=== PATIENT | female | born 1960 | race Caucasian/White ===

== ENCOUNTER 2018-01-03 16:26 | Emergency (ER) | payer MEDICARE, MEDICAID ==
[~2018-01-03] VITALS: Ht 170.2 cm; Wt 90.9 kg
[2018-01-03 16:51] LABS: BASOPHILS % (AUTO) 0.8 % (0.0-2.0); EOSINOPHILS % (AUTO) 2.1 % (1.0-6.0); HEMOGLOBIN 11.9 g/dL (12.0-16.0); LYMPHOCYTES % (AUTO) 14.2 % (22.0-44.0); MEAN CORPUSCULAR HEMOGLOBIN 34.5 pg (26.0-34.0); MEAN CORPUSCULAR HGB CONC 35.2 G/dL (31.0-37.0); MEAN CORPUSCULAR VOLUME 98 fL (80-100); MONOCYTES # (AUTO) 0.6 K/uL (0.1-1.0); MONOCYTES % (AUTO) 8.9 % (2.0-9.0); PLATELET COUNT (AUTO) 155 K/uL (150-450); RED BLOOD CELL COUNT(AUTO) 3.46 MIL/uL (4.00-5.20); RED CELL DISTRIBUTION WIDTH 13.1 % (11.5-14.5)
[2018-01-03 16:59] LABS: GLUCOSE,POINT OF CARE 205 MG/DL (70-110)
[2018-01-03 17:10] LABS: ANION GAP 14 mmol/L (8-16); CALCIUM, TOTAL 9.1 mg/dL (8.8-10.5); CARBON DIOXIDE 22 mmol/L (22-29); CHLORIDE 97 mmol/L (98-107); CREATININE 0.95 mg/dL (0.60-1.30); GLOMERULAR FILTR. RATE CALC > 60 mL/min (>60); GLUCOSE,RANDOM 200 mg/dL (70-110); POTASSIUM 3.1 mmol/L (3.5-5.1); SODIUM SERUM 133 mmol/L (136-145); UREA NITROGEN, BLOOD 21 mg/dL (7-18)
[2018-01-03 17:16] LABS: ALANINE AMINOTRANSFERASE 93 U/L (12-78); ALBUMIN 3.8 g/dL (3.4-5.0); ALKALINE PHOSPHATASE 81 U/L (46-116); ASPARTATE AMINOTRANSFERASE 188 U/L (15-37); BILIRUBIN,TOTAL 2.2 mg/dL (0.1-1.0); TOTAL PROTEIN, SERUM 7.6 g/dL (6.4-8.2)
[2018-01-03 17:47] LABS: AMPHET/METH SCREEN,URINE POSITIVE (NEGATIVE); BARBITURATE SCREEN, URINE NEGATIVE (NEGATIVE); BENZODIAZEPINES SCREEN,URINE NEGATIVE (NEGATIVE); CANNABINOID SCREEN,URINE NEGATIVE (NEGATIVE); COCAINE SCREEN,URINE NEGATIVE (NEGATIVE); METHADONE SCREEN, URINE NEGATIVE (NEGATIVE); OPIATE SCREEN,URINE NEGATIVE (NEGATIVE)
[2018-01-03 17:51] LABS: PHENCYCLIDINE SCREEN,URINE NEGATIVE (NEGATIVE)
[2018-01-03] MEDS ORDERED: POTASSIUM CHLORIDE 10% 40 MEQ/30 ML LIQUID UDCUP PO ONE (18:00)
[2018-01-03 20:45] VITALS: BP 133/77
== END 2018-01-03 20:55 | disposition home or self-care (01) ==
LOC: EMS 16:28
DX: E11.65 Type 2 diabetes mellitus with hyperglycemia (principal); K70.30 Alcoholic cirrhosis of liver without ascites; F41.9 Anxiety disorder, unspecified; E87.6 Hypokalemia; I83.93 Asymptomatic varicose veins of bilateral lower extremities; F15.10 Other stimulant abuse, uncomplicated; I10 Essential (primary) hypertension; F17.210 Nicotine dependence, cigarettes, uncomplicated; F15.90 Other stimulant use, unspecified, uncomplicated
CPT/HCPCS: 36415; 80053; 80307; 82962; 85025; 99284; G0480

== ENCOUNTER 2018-01-04 12:26 | Inpatient (IN) | payer MEDICARE, MEDICAID ==
[~2018-01-04] VITALS: Ht 165.1 cm; Wt 88.9 kg
[2018-01-04 13:18] LABS: BASOPHILS % (AUTO) 1.1 % (0.0-2.0); HEMOGLOBIN 12.2 g/dL (12.0-16.0); LYMPHOCYTES # (AUTO) 1.2 K/uL (1.0-4.8); LYMPHOCYTES % (AUTO) 20.3 % (22.0-44.0); MEAN CORPUSCULAR HEMOGLOBIN 34.3 pg (26.0-34.0); MEAN CORPUSCULAR HGB CONC 34.7 G/dL (31.0-37.0); MEAN CORPUSCULAR VOLUME 99 fL (80-100); MONOCYTES # (AUTO) 0.7 K/uL (0.1-1.0); MONOCYTES % (AUTO) 12.1 % (2.0-9.0); NEUTROPHILS # (AUTO) 3.7 K/uL (1.8-7.7); NEUTROPHILS % (AUTO) 64.5 % (40.0-70.0); PLATELET COUNT (AUTO) 161 K/uL (150-450); RED BLOOD CELL COUNT(AUTO) 3.55 MIL/uL (4.00-5.20); RED CELL DISTRIBUTION WIDTH 13.1 % (11.5-14.5)
[2018-01-04 13:33] LABS: ANION GAP 12 mmol/L (8-16); CARBON DIOXIDE 24 mmol/L (22-29); CHLORIDE 106 mmol/L (98-107); CREATININE 0.84 mg/dL (0.60-1.30); GLOMERULAR FILTR. RATE CALC > 60 mL/min (>60); GLUCOSE,RANDOM 206 mg/dL (70-110); POTASSIUM 3.3 mmol/L (3.5-5.1); SODIUM SERUM 142 mmol/L (136-145); UREA NITROGEN, BLOOD 23 mg/dL (7-18)
[2018-01-04 13:50] LABS: ALANINE AMINOTRANSFERASE 96 U/L (12-78); ALBUMIN 3.8 g/dL (3.4-5.0); ALKALINE PHOSPHATASE 71 U/L (46-116); ASPARTATE AMINOTRANSFERASE 166 U/L (15-37); BILIRUBIN,TOTAL 1.4 mg/dL (0.1-1.0); TOTAL PROTEIN, SERUM 7.6 g/dL (6.4-8.2)
[2018-01-04] MEDS ORDERED: LORazepam 2 MG TABLET PO ONE (14:45)
[2018-01-04] MEDS ORDERED: HALOPERIDOL 5 MG TABLET PO ONE (14:45)
[2018-01-04 21:38] LABS: GLUCOMETER DEV NAME(LOC) BV3S 2; GLUCOSE,POINT OF CARE 153 MG/DL (70-110)
[2018-01-04] MEDS ORDERED: POTASSIUM CHLORIDE 20 MEQ ER TABLET PO ONE (22:45)
[2018-01-04] MEDS ORDERED: GLUCAGON,HUMAN RECOMBINANT 1 MG VIAL IM PRN (23:00)
[2018-01-04 23:12] VITALS: BP 115/71
[2018-01-05] MEDS ORDERED: PNEUMOCOCCAL VACCINE POLYVALENT 0.5 ML VIAL [PPSV23] IM ONE (01:45)
[2018-01-05 05:56] VITALS: BP 125/61
[2018-01-05] MEDS: INSULIN LISPRO 100 UNITS/ML SQ PRN ×3 (07:00→18:18)
[2018-01-05 07:38] LABS: GLUCOMETER DEV NAME(LOC) BV3S 2; GLUCOSE,POINT OF CARE 151 MG/DL (70-110)
[2018-01-05 08:23] VITALS: BP 138/59
[2018-01-05 12:28] LABS: GLUCOMETER DEV NAME(LOC) BV3S 2; GLUCOSE,POINT OF CARE 162 MG/DL (70-110)
[2018-01-05] MEDS: ARIPiprazole 10 MG TABLET PO SCH (12:30)
[2018-01-05] MEDS: BACITRACIN 28.4 GM OINTMENT TP SCH (16:59)
[2018-01-05 17:09] LABS: GLUCOMETER DEV NAME(LOC) BV3S 2; GLUCOSE,POINT OF CARE 177 MG/DL (70-110)
[2018-01-05 22:28] LABS: GLUCOMETER DEV NAME(LOC) BV3S 2; GLUCOSE,POINT OF CARE 125 MG/DL (70-110)
[2018-01-06 08:02] LABS: BASOPHILS % (AUTO) 0.9 % (0.0-2.0); EOSINOPHILS % (AUTO) 5.1 % (1.0-6.0); HEMATOCRIT 33.9 % (36-46); HEMOGLOBIN 11.8 g/dL (12.0-16.0); LYMPHOCYTES # (AUTO) 1.4 K/uL (1.0-4.8); LYMPHOCYTES % (AUTO) 37.1 % (22.0-44.0); MEAN CORPUSCULAR HGB CONC 34.7 G/dL (31.0-37.0); MEAN CORPUSCULAR VOLUME 101 fL (80-100); MONOCYTES # (AUTO) 0.5 K/uL (0.1-1.0); MONOCYTES % (AUTO) 13.3 % (2.0-9.0); NEUTROPHILS # (AUTO) 1.7 K/uL (1.8-7.7); NEUTROPHILS % (AUTO) 43.6 % (40.0-70.0); PLATELET COUNT (AUTO) 158 K/uL (150-450); RED BLOOD CELL COUNT(AUTO) 3.37 MIL/uL (4.00-5.20); RED CELL DISTRIBUTION WIDTH 13.5 % (11.5-14.5)
[2018-01-06 08:07] LABS: ALANINE AMINOTRANSFERASE 62 U/L (12-78); ALBUMIN 2.9 g/dL (3.4-5.0); ALKALINE PHOSPHATASE 60 U/L (46-116); ANION GAP 6 mmol/L (8-16); ASPARTATE AMINOTRANSFERASE 57 U/L (15-37); BILIRUBIN,TOTAL 0.9 mg/dL (0.1-1.0); CALCIUM, TOTAL 8.6 mg/dL (8.8-10.5); CARBON DIOXIDE 26 mmol/L (22-29); CHLORIDE 106 mmol/L (98-107); CHOL/HDL RATIO 3.4 (3.9-5.7); CHOLESTEROL 165 mg/dL (131-200); CREATININE 0.57 mg/dL (0.60-1.30); GLOMERULAR FILTR. RATE CALC > 60 mL/min (>60); GLUCOSE,RANDOM 130 mg/dL (70-110); HDL CHOLESTEROL 48 mg/dL (40-60); LDL CHOL (CALC.) 103 mg/dL (0-130); POTASSIUM 3.4 mmol/L (3.5-5.1); SODIUM SERUM 138 mmol/L (136-145); TOTAL PROTEIN, SERUM 6.4 g/dL (6.4-8.2); TRIGLYCERIDES 71 mg/dL (15-150); UREA NITROGEN, BLOOD 11 mg/dL (7-18)
[2018-01-06 08:36] VITALS: BP 103/67
[2018-01-06] MEDS: BACITRACIN 28.4 GM OINTMENT TP SCH ×2 (08:46→17:00)
[2018-01-06] MEDS: ARIPiprazole 10 MG TABLET PO SCH (08:46)
[2018-01-06] MEDS ORDERED: POTASSIUM CHLORIDE 20 MEQ ER TABLET PO ONE (09:00)
[2018-01-06] MEDS: ACETAMINOPHEN 325 MG TABLET PO PRN (09:35)
[2018-01-06] MEDS: INSULIN LISPRO 100 UNITS/ML SQ PRN ×2 (11:43→20:53)
[2018-01-06 12:08] LABS: GLUCOMETER DEV NAME(LOC) BV3S 2; GLUCOSE,POINT OF CARE 207 MG/DL (70-110)
[2018-01-06 16:44] VITALS: BP 132/71
[2018-01-06] MEDS ORDERED: IBUPROFEN 600 MG TABLET PO ONE (16:45)
[2018-01-06 16:57] VITALS: BP 129/89
[2018-01-06 21:14] LABS: GLUCOMETER DEV NAME(LOC) BV3S 2; GLUCOSE,POINT OF CARE 192 MG/DL (70-110)
[2018-01-07 06:33] VITALS: BP 148/70
[2018-01-07] MEDS: INSULIN LISPRO 100 UNITS/ML SQ PRN ×3 (06:59→17:14)
[2018-01-07 07:00] LABS: GLUCOMETER DEV NAME(LOC) BV3S 2; GLUCOSE,POINT OF CARE 149 MG/DL (70-110)
[2018-01-07] MEDS: ARIPiprazole 10 MG TABLET PO SCH (08:13)
[2018-01-07] MEDS: BACITRACIN 28.4 GM OINTMENT TP SCH ×2 (08:13→16:42)
[2018-01-07 08:28] VITALS: BP 95/64
[2018-01-07 11:29] LABS: GLUCOMETER DEV NAME(LOC) BV3S 2; GLUCOSE,POINT OF CARE 170 MG/DL (70-110)
[2018-01-07 16:45] LABS: GLUCOMETER DEV NAME(LOC) BV3S 2; GLUCOSE,POINT OF CARE 190 MG/DL (70-110)
[2018-01-07 16:52] VITALS: BP 152/84
[2018-01-07] MEDS: ACETAMINOPHEN 325 MG TABLET PO PRN (20:36)
[2018-01-08] MEDS: ACETAMINOPHEN 325 MG TABLET PO PRN ×2 (04:28→13:37)
[2018-01-08] MEDS: INSULIN LISPRO 100 UNITS/ML SQ PRN ×4 (06:46→21:00)
[2018-01-08 07:14] LABS: GLUCOMETER DEV NAME(LOC) BV3S 2; GLUCOSE,POINT OF CARE 161 MG/DL (70-110)
[2018-01-08] MEDS: ARIPiprazole 10 MG TABLET PO SCH (09:09)
[2018-01-08] MEDS: BACITRACIN 28.4 GM OINTMENT TP SCH ×2 (09:11→17:14)
[2018-01-08 12:13] LABS: GLUCOMETER DEV NAME(LOC) BV3S 2; GLUCOSE,POINT OF CARE 177 MG/DL (70-110)
[2018-01-08 13:34] VITALS: BP 133/75
[2018-01-08 15:10] VITALS: BP 140/76
[2018-01-08 17:35] LABS: GLUCOMETER DEV NAME(LOC) BV3S 2; GLUCOSE,POINT OF CARE 199 MG/DL (70-110)
[2018-01-08 17:50] VITALS: BP 129/82
[2018-01-08] MEDS ORDERED: IBUPROFEN 600 MG TABLET PO ONE (19:30)
[2018-01-09 06:15] LABS: GLUCOMETER DEV NAME(LOC) BV3S 2; GLUCOSE,POINT OF CARE 167 MG/DL (70-110)
[2018-01-09] MEDS: ARIPiprazole 10 MG TABLET PO SCH (08:37)
[2018-01-09] MEDS: BACITRACIN 28.4 GM OINTMENT TP SCH ×2 (08:38→16:18)
[2018-01-09 08:46] VITALS: BP 131/67
[2018-01-09] MEDS: ACETAMINOPHEN 325 MG TABLET PO PRN ×2 (11:41→18:27)
[2018-01-09] MEDS: INSULIN LISPRO 100 UNITS/ML SQ PRN (11:43)
[2018-01-09 12:38] LABS: GLUCOMETER DEV NAME(LOC) BV3S 2; GLUCOSE,POINT OF CARE 211 MG/DL (70-110)
[2018-01-09 16:24] VITALS: BP 140/84
[2018-01-09 18:26] VITALS: BP 138/82
[2018-01-09] MEDS: DOCUSATE SODIUM 100 MG CAPSULE PO PRN (20:01)
[2018-01-10 06:59] LABS: GLUCOMETER DEV NAME(LOC) BV3S 2; GLUCOSE,POINT OF CARE 166 MG/DL (70-110)
[2018-01-10 08:38] VITALS: BP 148/79
[2018-01-10] MEDS: BACITRACIN 28.4 GM OINTMENT TP SCH ×2 (08:57→16:59)
[2018-01-10] MEDS ORDERED: ARIPiprazole 15 MG TABLET PO SCH (09:00)
[2018-01-10 10:00] VITALS: BP 134/80
[2018-01-10 11:09] LABS: GLUCOMETER DEV NAME(LOC) BV3S 2; GLUCOSE,POINT OF CARE 170 MG/DL (70-110)
[2018-01-10] MEDS: INSULIN LISPRO 100 UNITS/ML SQ PRN ×2 (11:48→20:57)
[2018-01-10] MEDS: DOCUSATE SODIUM 100 MG CAPSULE PO PRN (13:49)
[2018-01-10 16:14] VITALS: BP 146/84
[2018-01-10] MEDS: ACETAMINOPHEN 325 MG TABLET PO PRN (16:18)
[2018-01-10 21:09] LABS: GLUCOMETER DEV NAME(LOC) BV3S 2; GLUCOSE,POINT OF CARE 209 MG/DL (70-110)
[2018-01-10] MEDS: ZOLPIDEM TARTRATE 10 MG TABLET PO PRN (21:57)
[2018-01-11 06:59] LABS: GLUCOMETER DEV NAME(LOC) BV3S 2; GLUCOSE,POINT OF CARE 157 MG/DL (70-110)
[2018-01-11 08:13] VITALS: BP 136/71
[2018-01-11] MEDS: BACITRACIN 28.4 GM OINTMENT TP SCH ×2 (08:15→16:23)
[2018-01-11] MEDS: ARIPiprazole 10 MG TABLET PO SCH (08:15)
[2018-01-11] MEDS: ACETAMINOPHEN 325 MG TABLET PO PRN (09:54)
[2018-01-11] MEDS: INSULIN LISPRO 100 UNITS/ML SQ PRN ×2 (11:47→21:00)
[2018-01-11 12:59] LABS: GLUCOMETER DEV NAME(LOC) BV3S 2; GLUCOSE,POINT OF CARE 196 MG/DL (70-110)
[2018-01-11] MEDS: MetFORMIN HCL 500 MG TABLET PO SCH ×2 (16:24→21:00)
[2018-01-11 16:49] LABS: GLUCOMETER DEV NAME(LOC) BV3S 2; GLUCOSE,POINT OF CARE 139 MG/DL (70-110)
[2018-01-11 19:41] VITALS: BP 127/65
[2018-01-11] MEDS: ZOLPIDEM TARTRATE 10 MG TABLET PO PRN (20:46)
[2018-01-11 20:53] LABS: GLUCOMETER DEV NAME(LOC) BV3S 2; GLUCOSE,POINT OF CARE 176 MG/DL (70-110)
[2018-01-12 03:40] VITALS: BP 109/72
[2018-01-12] MEDS: ACETAMINOPHEN 325 MG TABLET PO PRN ×2 (03:45→21:09)
[2018-01-12 06:29] LABS: GLUCOMETER DEV NAME(LOC) BV3S 2; GLUCOSE,POINT OF CARE 152 MG/DL (70-110)
[2018-01-12] MEDS: INSULIN LISPRO 100 UNITS/ML SQ PRN ×4 (06:29→21:19)
[2018-01-12 08:02] LABS: ANION GAP 5 mmol/L (8-16); CALCIUM, TOTAL 9.2 mg/dL (8.8-10.5); CARBON DIOXIDE 30 mmol/L (22-29); CHLORIDE 103 mmol/L (98-107); CREATININE 0.64 mg/dL (0.60-1.30); GLOMERULAR FILTR. RATE CALC > 60 mL/min (>60); GLUCOSE,RANDOM 148 mg/dL (70-110); POTASSIUM 4.7 mmol/L (3.5-5.1); SODIUM SERUM 138 mmol/L (136-145); UREA NITROGEN, BLOOD 16 mg/dL (7-18)
[2018-01-12] MEDS: ARIPiprazole 10 MG TABLET PO SCH ×2 (08:29→09:02)
[2018-01-12] MEDS: LORazepam 2 MG TABLET PO PRN ×2 (08:29→09:02)
[2018-01-12 08:33] VITALS: BP 145/75
[2018-01-12] MEDS: BACITRACIN 28.4 GM OINTMENT TP SCH ×2 (09:02→17:05)
[2018-01-12 11:44] LABS: GLUCOMETER DEV NAME(LOC) BV3S 2; GLUCOSE,POINT OF CARE 171 MG/DL (70-110)
[2018-01-12 16:23] VITALS: BP 140/71
[2018-01-12] MEDS: MetFORMIN HCL 500 MG TABLET PO SCH (17:00)
[2018-01-12 17:09] LABS: GLUCOMETER DEV NAME(LOC) BV3S 2; GLUCOSE,POINT OF CARE 242 MG/DL (70-110)
[2018-01-12 20:34] LABS: GLUCOMETER DEV NAME(LOC) BV3S 2; GLUCOSE,POINT OF CARE 148 MG/DL (70-110)
[2018-01-12] MEDS: ZOLPIDEM TARTRATE 10 MG TABLET PO PRN (21:09)
[2018-01-13 06:34] LABS: GLUCOMETER DEV NAME(LOC) BV3S 2; GLUCOSE,POINT OF CARE 154 MG/DL (70-110)
[2018-01-13 06:42] VITALS: BP 134/72
[2018-01-13] MEDS: MetFORMIN HCL 500 MG TABLET PO SCH ×2 (06:44→16:52)
[2018-01-13] MEDS: ACETAMINOPHEN 325 MG TABLET PO PRN ×2 (06:45→13:09)
[2018-01-13] MEDS: INSULIN LISPRO 100 UNITS/ML SQ PRN ×3 (06:47→20:52)
[2018-01-13 07:40] VITALS: BP 130/74
[2018-01-13 08:54] VITALS: BP 128/73
[2018-01-13] MEDS: BACITRACIN 28.4 GM OINTMENT TP SCH ×2 (09:04→16:52)
[2018-01-13] MEDS: ARIPiprazole 15 MG TABLET PO SCH (09:04)
[2018-01-13 12:09] LABS: GLUCOMETER DEV NAME(LOC) BV3S 2; GLUCOSE,POINT OF CARE 128 MG/DL (70-110)
[2018-01-13 13:11] VITALS: BP 132/72
[2018-01-13 14:12] VITALS: BP 136/76
[2018-01-13] MEDS: LORazepam 2 MG TABLET PO PRN (16:52)
[2018-01-13] MEDS: HALOPERIDOL 5 MG TABLET PO PRN (16:52)
[2018-01-13 17:09] LABS: GLUCOMETER DEV NAME(LOC) BV3S 2; GLUCOSE,POINT OF CARE 159 MG/DL (70-110)
[2018-01-13 19:58] VITALS: BP 149/87
[2018-01-13] MEDS: ZOLPIDEM TARTRATE 10 MG TABLET PO PRN (20:49)
[2018-01-13 20:59] LABS: GLUCOMETER DEV NAME(LOC) BV3S 2; GLUCOSE,POINT OF CARE 169 MG/DL (70-110)
[2018-01-14 06:25] VITALS: BP 127/71
[2018-01-14] MEDS: ACETAMINOPHEN 325 MG TABLET PO PRN ×3 (06:26→21:38)
[2018-01-14] MEDS: MetFORMIN HCL 500 MG TABLET PO SCH ×2 (06:42→16:52)
[2018-01-14] MEDS: INSULIN LISPRO 100 UNITS/ML SQ PRN ×3 (07:05→21:27)
[2018-01-14 07:23] LABS: GLUCOMETER DEV NAME(LOC) BV3S 2; GLUCOSE,POINT OF CARE 146 MG/DL (70-110)
[2018-01-14 08:21] VITALS: BP 131/77
[2018-01-14] MEDS: ARIPiprazole 15 MG TABLET PO SCH (09:42)
[2018-01-14] MEDS: LORazepam 2 MG TABLET PO PRN (09:43)
[2018-01-14] MEDS: HALOPERIDOL 5 MG TABLET PO PRN (09:43)
[2018-01-14] MEDS: BACITRACIN 28.4 GM OINTMENT TP SCH ×2 (09:44→17:03)
[2018-01-14] MEDS: DOCUSATE SODIUM 100 MG CAPSULE PO PRN (11:43)
[2018-01-14 11:49] LABS: GLUCOMETER DEV NAME(LOC) BV3S 2; GLUCOSE,POINT OF CARE 113 MG/DL (70-110)
[2018-01-14 14:11] VITALS: BP 128/78
[2018-01-14 17:42] VITALS: BP 137/63
[2018-01-14 21:38] VITALS: BP 148/79
[2018-01-14 21:38] LABS: GLUCOMETER DEV NAME(LOC) BV3S 2; GLUCOSE,POINT OF CARE 207 MG/DL (70-110)
[2018-01-14 21:38] LABS: GLUCOMETER DEV NAME(LOC) BV3S 2; GLUCOSE,POINT OF CARE 169 MG/DL (70-110)
[2018-01-15 05:04] VITALS: BP 133/71
[2018-01-15] MEDS: MetFORMIN HCL 500 MG TABLET PO SCH ×2 (06:48→16:26)
[2018-01-15] MEDS: INSULIN LISPRO 100 UNITS/ML SQ PRN ×2 (06:49→16:52)
[2018-01-15] MEDS: ACETAMINOPHEN 325 MG TABLET PO PRN ×2 (06:52→16:44)
[2018-01-15] MEDS: DOCUSATE SODIUM 100 MG CAPSULE PO PRN (07:10)
[2018-01-15 07:29] LABS: GLUCOMETER DEV NAME(LOC) BV3S 2; GLUCOSE,POINT OF CARE 144 MG/DL (70-110)
[2018-01-15 08:18] VITALS: BP 108/63
[2018-01-15 08:32] VITALS: BP 124/72
[2018-01-15] MEDS: ARIPiprazole 15 MG TABLET PO SCH (08:33)
[2018-01-15] MEDS: LORazepam 2 MG TABLET PO PRN ×2 (08:33→16:15)
[2018-01-15] MEDS: BACITRACIN 28.4 GM OINTMENT TP SCH ×2 (08:33→16:26)
[2018-01-15 12:48] LABS: GLUCOMETER DEV NAME(LOC) BV3S 2; GLUCOSE,POINT OF CARE 175 MG/DL (70-110)
[2018-01-15 16:09] VITALS: BP 130/71
[2018-01-15 16:23] LABS: GLUCOMETER DEV NAME(LOC) BV3S 2; GLUCOSE,POINT OF CARE 210 MG/DL (70-110)
[2018-01-16 05:39] VITALS: BP 128/69
[2018-01-16] MEDS: MetFORMIN HCL 500 MG TABLET PO SCH ×2 (06:24→16:47)
[2018-01-16] MEDS: INSULIN LISPRO 100 UNITS/ML SQ PRN ×2 (06:25→16:47)
[2018-01-16] MEDS: ACETAMINOPHEN 325 MG TABLET PO PRN ×2 (06:37→20:35)
[2018-01-16 06:53] LABS: GLUCOMETER DEV NAME(LOC) BV3S 2; GLUCOSE,POINT OF CARE 150 MG/DL (70-110)
[2018-01-16 08:15] VITALS: BP 128/69
[2018-01-16] MEDS: LORazepam 2 MG TABLET PO PRN ×2 (08:20→16:48)
[2018-01-16] MEDS: ARIPiprazole 15 MG TABLET PO SCH (08:20)
[2018-01-16] MEDS: BACITRACIN 28.4 GM OINTMENT TP SCH ×2 (08:22→16:48)
[2018-01-16 11:59] LABS: GLUCOMETER DEV NAME(LOC) BV3S 2; GLUCOSE,POINT OF CARE 137 MG/DL (70-110)
[2018-01-16 16:00] VITALS: BP 104/62
[2018-01-16 16:49] LABS: GLUCOMETER DEV NAME(LOC) BV3S 2; GLUCOSE,POINT OF CARE 157 MG/DL (70-110)
[2018-01-16 20:28] LABS: GLUCOMETER DEV NAME(LOC) BV3S 2; GLUCOSE,POINT OF CARE 140 MG/DL (70-110)
[2018-01-17 06:40] LABS: GLUCOMETER DEV NAME(LOC) BV3S 2; GLUCOSE,POINT OF CARE 143 MG/DL (70-110)
[2018-01-17] MEDS: INSULIN LISPRO 100 UNITS/ML SQ PRN ×3 (06:55→21:00)
[2018-01-17] MEDS: MetFORMIN HCL 500 MG TABLET PO SCH ×2 (06:57→16:52)
[2018-01-17 06:59] VITALS: BP 112/64
[2018-01-17] MEDS: ACETAMINOPHEN 325 MG TABLET PO PRN ×2 (07:02→11:08)
[2018-01-17 08:00] VITALS: BP 143/73
[2018-01-17 08:28] LABS: BASOPHILS % (AUTO) 1.7 % (0.0-2.0); EOSINOPHILS % (AUTO) 2.3 % (1.0-6.0); HEMATOCRIT 39.8 % (36-46); HEMOGLOBIN 13.6 g/dL (12.0-16.0); LYMPHOCYTES # (AUTO) 2.2 K/uL (1.0-4.8); LYMPHOCYTES % (AUTO) 36.9 % (22.0-44.0); MEAN CORPUSCULAR HEMOGLOBIN 33.8 pg (26.0-34.0); MEAN CORPUSCULAR HGB CONC 34.2 G/dL (31.0-37.0); MEAN CORPUSCULAR VOLUME 99 fL (80-100); MONOCYTES # (AUTO) 0.5 K/uL (0.1-1.0); MONOCYTES % (AUTO) 8.6 % (2.0-9.0); NEUTROPHILS % (AUTO) 50.5 % (40.0-70.0); PLATELET COUNT (AUTO) 353 K/uL (150-450); RED BLOOD CELL COUNT(AUTO) 4.03 MIL/uL (4.00-5.20); RED CELL DISTRIBUTION WIDTH 13.1 % (11.5-14.5)
[2018-01-17] MEDS: ARIPiprazole 15 MG TABLET PO SCH (09:13)
[2018-01-17] MEDS: BACITRACIN 28.4 GM OINTMENT TP SCH ×2 (09:14→16:54)
[2018-01-17] MEDS ORDERED: IBUPROFEN 600 MG TABLET PO PRN (09:15)
[2018-01-17 11:49] LABS: GLUCOMETER DEV NAME(LOC) BV3S 2; GLUCOSE,POINT OF CARE 158 MG/DL (70-110)
[2018-01-17 16:18] VITALS: BP 137/65
[2018-01-17 16:49] LABS: GLUCOMETER DEV NAME(LOC) BV3S 2; GLUCOSE,POINT OF CARE 132 MG/DL (70-110)
[2018-01-17] MEDS: LORazepam 2 MG TABLET PO PRN (16:53)
[2018-01-17] MEDS: ZOLPIDEM TARTRATE 10 MG TABLET PO PRN (21:10)
[2018-01-17 21:23] LABS: GLUCOMETER DEV NAME(LOC) BV3S 2; GLUCOSE,POINT OF CARE 150 MG/DL (70-110)
[2018-01-18] MEDS: MetFORMIN HCL 500 MG TABLET PO SCH (06:35)
[2018-01-18] MEDS: INSULIN LISPRO 100 UNITS/ML SQ PRN (06:37)
[2018-01-18 06:39] LABS: GLUCOMETER DEV NAME(LOC) BV3S 2; GLUCOSE,POINT OF CARE 144 MG/DL (70-110)
[2018-01-18] MEDS ORDERED: ARIP15TA2 PO (07:39)
[2018-01-18] MEDS ORDERED: METF500T6 PO (07:54)
[2018-01-18 08:17] VITALS: BP 125/77
[2018-01-18] MEDS: ARIPiprazole 15 MG TABLET PO SCH (08:38)
[2018-01-18] MEDS: BACITRACIN 28.4 GM OINTMENT TP SCH (08:40)
== END 2018-01-18 11:09 | disposition home or self-care (01) | DRG 885 ==
LOC: EMS 12:28 → B3A 19:04
PROVIDERS: ADMIT Psychiatry & Neurology Psychiatry; ATTEND Psychiatry & Neurology Psychiatry
DX: F25.9 Schizoaffective disorder, unspecified (principal); M19.90 Unspecified osteoarthritis, unspecified site; F15.10 Other stimulant abuse, uncomplicated; E11.22 Type 2 diabetes mellitus with diabetic chronic kidney disease; I12.9 Hypertensive chronic kidney disease with stage 1 through stage 4 chronic kidney disease, or unspecified chronic kidney disease; N18.9 Chronic kidney disease, unspecified; E87.6 Hypokalemia; D72.819 Decreased white blood cell count, unspecified; F17.210 Nicotine dependence, cigarettes, uncomplicated; F41.9 Anxiety disorder, unspecified; F10.20 Alcohol dependence, uncomplicated; R45.87 Impulsiveness; Z79.899 Other long term (current) drug therapy; Z59.0 Homelessness; Z85.42 Personal history of malignant neoplasm of other parts of uterus
CPT/HCPCS: 83036; 84132; 87081; 99284; 99285; G0480